=== PATIENT | female | born 1950 | race Caucasian/White ===

== ENCOUNTER 2024-12-25 09:34 | Outpatient (CLI) | payer OTHER, SELFPAY | END 2024-12-25 09:35 | disposition home or self-care (01) | PROVIDERS: Visit Provider Physician Assistant Medical | DX: E78.5 Hyperlipidemia, unspecified (principal); I10 Essential (primary) hypertension; E11.9 Type 2 diabetes mellitus without complications; R29.898 Other symptoms and signs involving the musculoskeletal system; R82.90 Unspecified abnormal findings in urine; Z79.84 Long term (current) use of oral hypoglycemic drugs; Z13.21 Encounter for screening for nutritional disorder | CPT/HCPCS: 80053; 80061; 82043; 82570; 82607; 84443; 87086 ==

== ENCOUNTER 2024-12-31 10:30 | Outpatient (RCR) | payer OTHER, SELFPAY ==
--- NOTE | 2024-12-31 12:09 | PT.OPE ---
PT [facility] [facility] Eval PT [facility] Outpatient Eval Start: 12/31/24 11:06 Freq: Status: Active Protocol: Document 12/31/24 12:07 CJT (Rec: 12/31/24 12:09 ONEILT [id number]) E-signed By Joshua Brandon PT Physical Therapy Outpatient Evaluation Insurance Information Recert Due Date 03/31/25 Insurance Name Medicare B,Other; See Comments Insurance [employer] Information/Comments Medical Diagnosis R29.898 - other symptoms and signs involving the musculoskeletal system Treating Diagnosis M25.36 - knee instability Referring Debra Corbett Subjective Preferred Name Shelia Sutton Pt presents with complaints of R leg weakness. When she sits a long time she notices her R Leg goes completely numb. This has been ongoing since August when she and her drove from [place] to [place]. When she stands up after sitting for long periods she notes that her R leg from the knee down is numb and feels that her knee will buckle on her and has no strength. Pt notes that the style of seat does not seem to matter . Pain Comments No pain Current Work Status Retired Objective Other/Pertinent Lumbar ROM Objective Extension - moderate limitations, no pain Flexion - no limitations, no pain R/L Side Bend - no limitations, no pain R/L Rotation - no limitations, no pain R Hip ROM Flexion - WNL IR/ER - WNL L Hip ROM Flexion - WNL IR/ER - WNL R knee ROM - WFL L knee ROM - WFL R Hip Strength Flexion - 4+/5 MMT Abduction (seated) - 5/5 MMT Adduction - 5/5 MMT IR - 5/5 MMT ER - 5/5 MMT L Hip Strength Flexion - 4+/5 MMT Abduction (seated) - 5/5 MMT Adduction - 5/5 MMT IR - 5/5 MMT ER - 5/5 MMT R knee Extension - 4+/5 MMT R Knee Flexion - 5/5 MMT L knee Extension - 4+/5 MMT L knee Flexion - 5/5 MMT R ankle DF - 4+/5 MMT L ankle DF - 4+/5 MMT Palpation: pt denies tenderness with palpation this date Gait: short stride length, flat foot strike DTRs: 2+ B patella, unable to illicit B achilles tendons Special Testing Slump: negative SLR: negative FADIR: negative YANNI: negative Selena's: DNT Piriformis: negative Hamstring: Negative Assessment Assessment/ Shelia is a very pleasant year old Female who presents Impression to our clinic for evaluation and treatment of Right leg weakness. I was unable to find any major deficits or indications of what might be causing Shelia's symptoms today. Potential options include foraminal stenosis causing nerve impingement in seated position, irritation of sciatic nerve due to posterior thigh pressure in seated position, and piriformis syndrome. Today Shelia and I spoke about spine mechanics and offered options for her to try modifying her posture when she experiences the numbness in her leg. Due to pts poor insurance coverage, she would like to avoid returning for additional treatment due to cost. I will plan to follow up with Shelia in 2 weeks via phone call to see if exercises and options discussed today have been beneficial. If pts symptoms persist, I do think MRI of the lumbar spine would be beneficial to determine if her symptoms are caused by impingement in the spine. Primary Functional Walking, standing after sitting Limitations Plan of Care Rehabilitation Fair Potential Physical Therapy Goals to be completed at time of discharge: Goals 1. Pt will report consistent performance of HEP 2. Pt will report absence of leg numbness and [id number] after sitting up to 1 hour. Treatment Plan/ Joint Mobilization,Manual Therapy,Neuromuscular Re-ed, Direct Interventions Self-Care/Home Management,Therapeutic Activities, Therapeutic Exercises Frequency/Duration Eval only Patient Will Be Completion of LTG(s),Skills Plateau,Independent w/HEP, Discharged From Independently Progressing Therapy Evaluation Billing Untimed Code 40 Treatment Minutes PT Eval No Charge No Complexity Low Certification Information Initial 12/31/24 Certification Date Ending Certification 03/31/25 Date Provider Signature Yes Required Provider Signature POC & Medical Necessity Shows Agreement With Physician NPI Number Write NPI# Here Physician Comment/ : Change Physician Signature Please Sign/Date Here & Date Requested
== END 2025-03-12 12:54 | disposition home or self-care (01) ==
PROVIDERS: Visit Provider Physician Assistant Medical
DX: R29.898 Other symptoms and signs involving the musculoskeletal system (principal); Z51.89 Encounter for other specified aftercare
CPT/HCPCS: 97110; 97161

== ENCOUNTER 2025-02-13 12:33 | Outpatient (CLI) | payer OTHER, SELFPAY ==
--- NOTE | 2025-02-13 13:00 | CRLHL7_ITS ---
For Patients: As a result of the Century Cures Act, medical imaging exams and procedure reports are released immediately into your electronic medical record. You may view this report before your referring provider. If you have questions, please contact your health care provider. Indication: Tinnitus. Technique: [id number] MRA images of the head. Comparison: None. Findings: The internal carotid, middle cerebral, and anterior cerebral arteries are widely patent. The vertebral, basilar, and posterior cerebral arteries are widely patent. No intracranial aneurysm or high-flow vascular malformation. Impression: Unremarkable MRA of the head. Dictated by Bandar Palafox MD @ 02/13/2025 3:12:06 PM (Electronically Signed)
--- NOTE | 2025-02-13 13:00 | CRLHL7_ITS ---
For Patients: As a result of the Century Cures Act, medical imaging exams and procedure reports are released immediately into your electronic medical record. You may view this report before your referring provider. If you have questions, please contact your health care provider. Indication: Tinnitus. Technique: Multiplanar multisequence noncontrast MR images of the brain. Comparison: None. Findings: Mild diffuse cerebral volume loss. No mass effect or midline shift. Minimal FLAIR hyperintensities in the supratentorial white matter, typical for chronic microvascular ischemic changes. No intracranial hemorrhage or pathologic extra-axial fluid collection. No diffusion restriction to suggest acute infarction. The major arterial flow voids of the skull base are preserved. Globes are symmetric. Paranasal sinuses are well aerated. Mastoid air cells are clear. Impression: 1. No acute intracranial abnormality. 2. Mild diffuse cerebral volume loss and minimal chronic microvascular ischemic changes. Dictated by Bandar Palafox MD @ 02/13/2025 3:03:23 PM (Electronically Signed)
== END 2025-02-13 12:34 | disposition home or self-care (01) ==
LOC: MRI 12:35
PROVIDERS: PCP Physician Assistant Medical; Visit Provider Physician Assistant Medical
DX: H93.19 Tinnitus, unspecified ear (principal); I67.82 Cerebral ischemia
CPT/HCPCS: 70544; 70551